=== PATIENT | female | born 1965 | race Caucasian/White ===

== ENCOUNTER 2019-05-06 19:21 | Inpatient (IN) | payer OTHER ==
[~2019-05-06] VITALS: Ht 160 cm; Wt 59.0 kg
[~2019-05-06 19:21] MED LIST: NO HOME MEDS.
[2019-05-06] MEDS ORDERED: KETOROLAC 60MG/2ML VIAL IM ONE (20:30)
[2019-05-06] MEDS ORDERED: SODIUM CHLORIDE 0.9% 1,000 ML IV ONE (20:55)
[2019-05-06] MEDS ORDERED: MORPHINE SULFATE 4 MG/ML CPJ (NOT FOR IM USE) IV STA (20:55)
[2019-05-06] MEDS ORDERED: ONDANSETRON HCL 4MG/2ML INJ IV STA (20:55)
[2019-05-06 21:06] LABS: CLARITY URINE CLEAR (CLEAR); COLOR URINE DARK YELLOW (YELLOW); KETONES URINE NEGATIVE (NEGATIVE); LEUKOCYTE ESTERASE URINE 1+ (NEGATIVE); NITRITE URINE NEGATIVE (NEGATIVE); OCCULT BLOOD URINE 2+ (NEGATIVE); PROTEIN URINE NEGATIVE (NEGATIVE)
[2019-05-06 22:47] LABS: BASOPHILS % 0.8 % (0.0-2.0); EOSINOPHILS % 3.5 % (0.0-5.0); HEMATOCRIT. 37.5 % (36.0-48.0); HEMOGLOBIN. 12.8 g/dL (12.0-16.0); MEAN CORPUSCULAR HEMOGLOBIN 33.9 pg (28.0-32.0); MEAN CORPUSCULAR VOLUME 99.2 fL (81.0-99.0); MEAN PLATELET VOLUME 8.7 fl (7.4-10.4); MONOCYTES % 9.1 % (2.0-8.0); NEUTROPHILS % 64.6 % (40.0-76.0); PLATELET 201 x1000/uL (130-400); RED BLOOD CELL COUNT 3.78 mill/uL (4.2-5.4); RED CELL DISTRIBUTION WIDTH 14.6 % (11.6-14.6)
[2019-05-06 22:50] LABS: CHLORIDE 115 mEq/L (98-107)
[2019-05-06 22:51] LABS: INR 0.9; PROTHROMBIN TIME 9.3 sec (9.6-11.0)
[2019-05-07] MEDS ORDERED: SODIUM CHLORIDE 0.9% 1,000 ML IV ONE ×2 (01:30)
[2019-05-07] MEDS ORDERED: CEFTRIAXONE 1 G PREMIX 50 ML IV SCH ×3 (01:30→21:00)
[2019-05-07] MEDS: DEXT 5%/0.45% NACL 1000ML 1,000 ML IV SCH ×2 (04:01→16:39)
[2019-05-07] MEDS: ONDANSETRON HCL 4MG/2ML INJ IV PRN (08:08)
[2019-05-07] MEDS: MORPHINE SULFATE 2 MG/ML CPJ (NOT FOR IM USE) IV PRN (08:08)
[2019-05-07 10:16] VITALS: BP 121/78
[2019-05-07 12:00] VITALS: BP 115/68
[2019-05-07 20:00] VITALS: BP 113/69
[2019-05-08] VITALS: BP 114/69
[2019-05-08] MEDS: MORPHINE SULFATE 2 MG/ML CPJ (NOT FOR IM USE) IV PRN (00:21)
[2019-05-08] MEDS: ONDANSETRON HCL 4MG/2ML INJ IV PRN (00:51)
[2019-05-08 04:00] VITALS: BP 101/58
[2019-05-08 08:00] VITALS: BP 117/70
[2019-05-08 08:37] LABS: BASOPHILS % 1.3 % (0.0-2.0); EOSINOPHILS % 4.8 % (0.0-5.0); HEMATOCRIT. 36.9 % (36.0-48.0); HEMOGLOBIN. 12.5 g/dL (12.0-16.0); MEAN CORPUSCULAR HEMOGLOBIN 33.4 pg (28.0-32.0); MEAN CORPUSCULAR VOLUME 98.9 fL (81.0-99.0); MEAN PLATELET VOLUME 9.2 fl (7.4-10.4); MONOCYTES % 11.8 % (2.0-8.0); NEUTROPHILS % 45.1 % (40.0-76.0); PLATELET 216 x1000/uL (130-400); RED BLOOD CELL COUNT 3.73 mill/uL (4.2-5.4); RED CELL DISTRIBUTION WIDTH 15.1 % (11.6-14.6)
[2019-05-08 09:45] LABS: CHLORIDE 117 mEq/L (98-107)
[2019-05-08 09:52] LABS: LDL CHOLESTEROL 135 mg/dL (5-100)
[2019-05-08 09:53] LABS: HDL CHOLESTEROL 51 mg/dL (40-59)
[2019-05-08 12:00] VITALS: BP 115/72
[2019-05-08 12:24] VITALS: BP 115/72
== END 2019-05-08 14:45 | disposition home or self-care (01) | DRG 282 ==
LOC: ER 19:21 → 6EST 05-07 02:20 → EDBEDREQ 05-07 02:33 → ENRESERV 05-07 07:16
PROVIDERS: ADMIT Hospitalist; ATTEND Hospitalist
DX: K85.10 Biliary acute pancreatitis without necrosis or infection (principal); E78.5 Hyperlipidemia, unspecified; N83.8 Other noninflammatory disorders of ovary, fallopian tube and broad ligament; Z90.710 Acquired absence of both cervix and uterus; Z98.891 History of uterine scar from previous surgery; Z79.899 Other long term (current) drug therapy; Z87.440 Personal history of urinary (tract) infections; K80.20 Calculus of gallbladder without cholecystitis without obstruction
CPT/HCPCS: 36415; 74176; 76705; 80053; 80061; 81003; 85025; 93970; 96365; 96375; 99285; J0696; J1885; J2270; J2405; J7030